=== PATIENT | male | born 1995 | race Hispanic/Latino ===

== ENCOUNTER 2023-02-13 15:30 | Outpatient (RCR) | payer OTHER, SELFPAY ==
--- NOTE | 2023-01-09 09:35 | PTOPEVAL1 ---
Assessment and note entered by Sheryl Zamudio, PT Evaluation Information Assessment Status Evaluation Diagnosis low back pain Onset Jul 2022 Subjective Information Kala reports: onset of back pain with falling backwards, landing on butt; pain always there; xrays were OK; Reported Pain Level Pain Score Self Report Additional Pain Score Comments reports pain constantly about 3/10; constant aching, does not change much; points to upper lumbar and sacral areas as painful; taking meloxicam, helps a little; able to do all home and work tasks, but hurts; Oswestry self assessment score of 14% limitation; sleeping is OK; walking and standing back feels same; did have pain into R leg, but not anymore; is active, plays soccer-- continues to do; have not used heat/ice on back; discussed PRN use EDUCATION: pain control, position change, heat/ ice use, stretching,HEP; Assessment PT Clinical Summary Kala reports onset of back pain after falling backwards and landing on his butt, about 5 months ago. Pain is constantly there, but he is able to do his usual work, home and recreational soccer playing. Self assessment with Oswestry is 14% limitation in activity level. With the evaluation, he has flat thoracic and lumbar spine, with sway back- shoulders behind hips; pain increase with motions of supine R trunk rotation, R & L piriformis stretch, prone L hip extension; there is tightness over R and L hamstring, piriformis, anterior hip/quad muscles; in prone with palpation, his R SIJ is more anterior than L. Skilled PT services are indicated for modalities to decrease pain, therapeutic exercises to stretch hips, trunk and education for posture and HEP. Plan of Care Interventions Electrical Stimulation,Hot Pack/Cold Pack,Manual Therapy,Neuro Re-education,Patient/Caregiver Education,Therapeutic Activities,Therapeutic Exercise,Ultrasound,Other Other Interventions taping, instrument assisted manual therapy PT Services Indicated Yes Treatment Frequency and 1x/wk for 5 weeks, due to his schedule, requests Duration 1x/wk These treatments will address the objective and functional deficits as defined above. The patient will be
--- NOTE | 2023-03-13 12:53 | PTOPDC ---
Assessment and note entered by Sheryl Zamudio, PT Evaluation Information Assessment Status Discharge - Pt Not Present Diagnosis low back pain Onset Jul 2022 Assessment PT Clinical Summary Kala has not returned for additional therapy after the reevaluation on 02-13-23. Refer to that report for his status at the last session. Discharge PT services. Plan of Care PT Services Indicated No
== END 2023-03-15 12:05 | disposition home or self-care (01) ==
LOC: ANHPT 15:30
PROVIDERS: PCP Registered Nurse; Visit Provider Registered Nurse
DX: M54.16 Radiculopathy, lumbar region (principal)
CPT/HCPCS: 97014; 97110; 97140; 97161; 97530; G0283

== ENCOUNTER 2024-01-30 13:17 | Emergency (ER) | payer OTHER, SELFPAY ==
--- NOTE | ~2024-01-30 | XR_ITS ---
EXAMINATION: XR tibia fibula LT 2V DATE: 01/30/2024 13:46 INDICATION: Left lower leg pain. Injury. TECHNIQUE: 2 views of left tibia and fibula on 4 radiograph were obtained. COMPARISON: None. FINDINGS: Bone alignment is normal. There is a nondisplaced transverse fracture of proximal diaphysis of the fibula. 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 No knee joint effusion. IMPRESSION: 1. Nondisplaced transverse fracture of proximal diaphysis of the fibula. Reviewed, dictated and finalized at location A.
--- NOTE | 2024-01-30 13:30 | ED.LOWEXIN ---
HPI - Extremity Injury (Lower) General Chief Complaint: Extremity Injury, Lower Stated Complaint: left leg pain Time Seen by Provider: 01/30/24 13:28 Source: patient, RN notes reviewed and old records reviewed Mode of arrival: ambulatory Limitations: no limitations History of Present Illness HPI Narrative: 28-year-old male presents to the [facility] with left lateral leg pain. Patient states that he was playing soccer on Monday, 2 days ago when he was in a collision with another player. Pain and tenderness mid lateral calf Unknown last Tdap Significant abrasion noted to the knee, erythema, increased warmth noted. No bleeding noted Onset (ago): day(s) (2) Related Data Allergies Allergy/AdvReac Type Severity Reaction Status Date / Time No Known Allergies Allergy Verified 01/30/24 13:56 Review of Systems Review of Systems: All systems reviewed & are unremarkable except as noted in HPI and below Constitutional: Constitutional: Reports no additional constitutional complaints Eyes: Eyes: Reports no additional eye complaints ENT: Reports system reviewed and no additional complaints, except as documented Cardiovascular: Cardiovascular: Reports no additional cardiovascular complaints, Denies chest pain and Denies dyspnea Respiratory: Respiratory: Reports no additional respiratory complaints, Denies chest congestion, Denies cough and Denies dyspnea Gastrointestinal: Gastrointestinal: Reports no additional gastrointestinal complaints, Denies abdominal pain, Denies nausea and Denies vomiting Musculoskeletal: Musculoskeletal: Reports as per HPI Integumentary/Breasts: Skin/Breast: Reports system reviewed and no additional complaints, except as docu Neurologic: Reports system reviewed and no additional complaints, except as documented Psychiatric: Psychiatric: Reports no additional psychiatric complaints Allergic/Immunologic: Allergic/Immunologic: Reports no additional allergic/immunologic complaints PMFSH Comments At the time of my signature, I reviewed and agree with the nursing past medical, surgical, social, and family history. There is no relevant family history pertinent to the patient complaint. Exam Const: General: cooperative, healthy appearing, comfortable, no acute distress, well developed, alert and well nourished Nutritional Appearance: well nourished Orientation/consciousness: patient oriented x3 Limitations: no limitations HENMT: Head: normal to inspection Ears: hearing grossly normal bilaterally and external ears normal Face/Nose/Sinus: Normal external nose present, Normal nares present, Normal nasal mucous membranes and turbinates present, normal facial exam and face symmetric Face and sinus: normal facial exam and face symmetric Eyes: General: appearance normal, both eyes and all related structures Alignment and Position: alignment normal Periorbital: periorbital findings normal Pupils: Equal, round and reactive pupils present EOM: EOMs intact bilaterally Neck: Neck: normal visual inspection, full ROM, no lymphadenopathy and no meningeal signs Chest: Chest palpation & inspection: normal inspection of the chest Resp: Effort & Inspection: normal respiratory effort and able to speak in complete sentences Auscultation: clear to auscultation bilaterally, no crackles, no rales, no rhonchi and no wheezes Cardio: Rate: regular rate Rhythm: regular rhythm Skin: General skin exam: normal color and no rashes or lesions noted Lesions: no lesions Rashes: no rashes Trauma: no lacerations or abrasions Other: Abrasion noted to the anterior left knee Neuro: General: patient oriented x3, gait normal, tone normal, moves all extremities and no meningeal signs Cranial nerves: Yes Equal, round and reactive pupils present Cognition (Neuro): normal cognition Speech: normal speech Gait exam (Neuro): Normal gait present Extrem: General: normal to inspection, full ROM, capillary refill normal and normal gait L
[2024-01-30 13:31] VITALS: BP 116/76; PULSE 61; RESP 16; TEMP 37.1; O2SAT 99
[2024-01-30] MEDS: TETANUS,DIPHTHERIA,AC PERTUSSIS ADULT (0.5 ML) BOOSTRIX IM (14:09)
== END 2024-01-30 14:45 | disposition home or self-care (01) ==
PROVIDERS: Emergency Provider Nurse Practitioner; PCP Registered Nurse
DX: S82.832A Other fracture of upper and lower end of left fibula, initial encounter for closed fracture (principal); W51.XXXA Accidental striking against or bumped into by another person, initial encounter; Y93.66 Activity, soccer; S80.212A Abrasion, left knee, initial encounter; Z23 Encounter for immunization
CPT/HCPCS: 29515; 73590; 90471; 90715; 99214; G0463